=== PATIENT | male | born 1965 | race Caucasian/White ===

== ENCOUNTER 2018-11-15 16:07 | Emergency (ER) | payer SELFPAY ==
[~2018-11-15] VITALS: Ht 172.7 cm; Wt 110.0 kg
[2018-11-15] MEDS ORDERED: SODIUM CHLORIDE 0.9% 1,000 ML IV ONE ×2 (16:31→16:45)
[2018-11-15 16:52] LABS: BG BASE EXCESS -24.1 mmol/L (-2.0-2.0); BG CARBOXYHEMOGLOBIN 2.1 % (0.5-1.5); BG DEOXYHEMOGLOBIN 0.5 % (0.0-5.0); BG METHEMOGLOBIN 0.8 % (0.0-1.5); BG OXYGEN SATURATION 99.5 % (92.0-98.5); BG OXYHEMOGLOBIN 96.6 % (94.0-97.0); BG PCO2 21.5 mmHg (35.0-45.0); BG PH 6.984 (7.350-7.450); BG PO2 302.4 mmHg (75.0-100.0); BG SAMPLE SITE LEFT RADIAL; BG TOTAL HEMOGLOBIN 4.9 g/dL (12.0-18.0); BG VENT MODE MASK - NRB
[2018-11-15 17:16] LABS: BASOPHILS % 1.3 % (0.0-2.0); EOSINOPHILS % 0.3 % (0.0-5.0); LYMPHOCYTES % 18.9 % (20.0-50.0); MEAN CORPUSCULAR HEMOGLOBIN 21.8 pg (28.0-32.0); MEAN CORPUSCULAR VOLUME 77.1 fL (80.0-94.0); MEAN PLATELET VOLUME 8.8 fl (7.4-10.4); MONOCYTES % 3.4 % (2.0-8.0); NEUTROPHILS % 76.1 % (40.0-76.0); PLATELET 622 x1000/uL (130-400); RED BLOOD CELL COUNT 2.19 mill/uL (4.7-6.1); RED CELL DISTRIBUTION WIDTH 19.8 % (11.6-14.6)
[2018-11-15 17:21] LABS: CHLORIDE 105 mEq/L (98-107)
[2018-11-15 17:26] LABS: CLARITY URINE CLEAR (CLEAR); COLOR URINE YELLOW (YELLOW); KETONES URINE TRACE (NEGATIVE); LEUKOCYTE ESTERASE URINE NEGATIVE (NEGATIVE); NITRITE URINE NEGATIVE (NEGATIVE); OCCULT BLOOD URINE NEGATIVE (NEGATIVE); PROTEIN URINE NEGATIVE (NEGATIVE); SPECIFIC GRAVITY URINE 1.017 (1.005-1.030); UROBILINOGEN URINE 0.2 E.U./dL (0.2-1.0)
[2018-11-15 17:27] LABS: HEMATOCRIT. 16.9 % (42.0-52.0); HEMOGLOBIN. 4.8 g/dL (14.0-18.0)
[2018-11-15 17:29] LABS: ETHANOL BLOOD < 10 mg/dL
[2018-11-15] MEDS ORDERED: CEFEPIME 1,000 MG in DEXTROSE 5% WATER 50 ML IV STA (17:40)
[2018-11-15] MEDS ORDERED: VANCOMYCIN 1 G PREMIX 200 ML IV STA (17:40)
[2018-11-15] MEDS ORDERED: SODIUM BICARBONATE 8.4% 1 MEQ/ML 50ML SYR IV ONE (17:45)
[2018-11-15 17:53] LABS: *BARBITURATES SCREEN URINE NEGATIVE (NEGATIVE); *BENZODIAZEPINES SCREEN URINE NEGATIVE (NEGATIVE); *COCAINE SCREEN URINE PRESUMTIVE POSITIVE (NEGATIVE); METHADONE URINE SCREEN NEGATIVE (NEGATIVE)
[2018-11-15 17:54] LABS: *AMPHETAMINES SCREEN URINE NEGATIVE (NEGATIVE); CANNABINOID URINE SCREEN NEGATIVE (NEGATIVE); OPIATES URINE SCREEN NEGATIVE (NEGATIVE); PHENCYCLIDINE URINE SCREEN NEGATIVE (NEGATIVE)
[2018-11-15] MEDS ORDERED: EPINEPHRINE 0.1MG/ML (1:10,000) 10ML SYR ONE ×3 (18:15→22:02)
[2018-11-15] MEDS ORDERED: NOREPINEPHRINE 4MG/250ML PMX 250 ML IV ONE (18:21)
[2018-11-15] MEDS ORDERED: DOPAMINE 400MG/250ML PREMIX 250 ML IV ONE (18:29)
[2018-11-15] MEDS ORDERED: PANTOPRAZOLE SODIUM 40 MG/VIAL IV STA (18:41)
[2018-11-15] MEDS ORDERED: OCTREOTIDE ACETATE 50 MCG/ML 1ML IV NR (18:41)
[2018-11-15] MEDS ORDERED: PANTOPRAZOLE 80 MG in SODIUM CHLORIDE 0.9% 100 ML IV STA (18:41)
[2018-11-15] MEDS ORDERED: SODIUM BICARBONATE 150 MEQ in SODIUM CHLORIDE 0.45% 850 ML IV SCH (18:45)
[2018-11-15 19:08] LABS: INR 1.2
[2018-11-15] MEDS ORDERED: VANCOMYCIN 1 G PREMIX 200 ML IV SCH (20:00)
[2018-11-15] MEDS ORDERED: DOPAMINE 400MG/250ML PREMIX 250 ML IV SCH ×2 (20:30→20:45)
[2018-11-15] MEDS ORDERED: SODIUM BICARBONATE 8.4% 1 MEQ/ML 50ML SYR IV SCH (20:30)
[2018-11-15] MEDS ORDERED: NOREPINEPHRINE 4 MG in DEXT 5% WATER 246 ML IV SCH (20:30)
[2018-11-15] MEDS ORDERED: SODIUM CHLORIDE 0.9% 1,000 ML IV SCH (20:30)
[2018-11-15] MEDS ORDERED: NOREPINEPHRINE 4MG/250ML PMX 250 ML IV SCH (20:45)
[2018-11-15 21:13] VITALS: BP 76/20
[2018-11-16] MEDS ORDERED: CALCIUM CHLORIDE 1GM/10ML SYR IV ONE (15:40)
[2018-11-16] MEDS ORDERED: SODIUM BICARBONATE 8.4% 1 MEQ/ML 50ML SYR IV ONE (15:40)
[2018-11-16] MEDS ORDERED: EPINEPHRINE 0.1MG/ML (1:10,000) 10ML SYR ONE (15:40)
== END 2018-11-16 | disposition expired ==
LOC: ER 16:07 → CANBEDREQ 11-16 01:24
DX: R65.21 Severe sepsis with septic shock (principal); R57.1 Hypovolemic shock; J96.00 Acute respiratory failure, unspecified whether with hypoxia or hypercapnia; K92.2 Gastrointestinal hemorrhage, unspecified; D62 Acute posthemorrhagic anemia; N17.9 Acute kidney failure, unspecified; G93.41 Metabolic encephalopathy; E87.2 Acidosis; E11.65 Type 2 diabetes mellitus with hyperglycemia; T40.5X1A Poisoning by cocaine, accidental (unintentional), initial encounter; F14.10 Cocaine abuse, uncomplicated; Y92.89 Other specified places as the place of occurrence of the external cause
CPT/HCPCS: 31500; 36415; 36556; 36600; 71045; 80053; 80305; 80307; 80329; 81003; 82140; 82375; 82805; 82962; 83605; 83880; 84443; 84484; 85025; 85610; 85730; 86850; 86900; 86901; 86920; 87186; 92950; 93005; 94002; 96361; 96365; 96367; 96375; 96376; 99291; C9113; J0692; J1265; J2354; J3490; J7030; J7040; J7050; J7060; Z7610; P9016